=== PATIENT | female | born 1960 | race Caucasian/White ===

== ENCOUNTER → 2017-06-11 15:16 | Outpatient (CLI) | payer BC, SELFPAY ==
--- NOTE | 2017-06-11 15:21 | XR_ITS ---
XR foot LT min 3V Ordering Physician: Daniel Granados MD Patient Age: 57 years: Female HISTORY: ITS.REASON: LT FOOT PAIN Pain mainly at second toe TECHNIQUE: 3 views left foot COMPARISON :None FINDINGS No fracture nor dislocation. No periosteal reaction. Joint spaces are well-maintained. . Attention is directed towards the second toe. It appears intact. There is some mild osseous prominence with mild medial & lateral flaring from the base of the distal phalanx of the second toe and well as of fourth toe-reflecting minor morphology variation here & mild contour variation here. No foreign body or additional findings at the second toe The subarticular base proximal phalanx of the first toe is slightly sclerotic, with minor early hypertrophic changes about the lateral margin of first MTP joint which may reflect early degenerative change at first MTP joint. Slight foreshortening of the proximal phalanx great toe could reflect old injury possibly. Slightly generous over plantar calcaneal spur measuring over 11 mm. only minimal spurring at insertion Achilles tendon. --- IMPRESSION: No fracture nor subluxation. No prominent findings. Second toe appears intact Minor observations. As in text
== END ==
PROVIDERS: PCP Family Medicine; Visit Provider Family Medicine
DX: M79.672 Pain in left foot (principal)
CPT/HCPCS: 73630

== ENCOUNTER → 2017-10-30 09:56 | Outpatient (CLI) | payer BC, SELFPAY ==
--- NOTE | 2017-10-30 10:04 | CT_ITS ---
CT lung screening EXAM: CT LUNG LOW DOSE WO CONTRAST HISTORY: Currently smoking.... 1 pack per year for 36 years = 36 pack years. : CURRENT TOBACCO USE' ORDERING PHYSICIAN: Daniel Granados MD PATIENT AGE: 57 years COMPARISON: PA and lateral CXR 03/06/2007.No prior CT study TECHNIQUE: The exam was performed on a [employer] Speed [address] scanner using 2.9 mGy CTDI. A low dose helical CT CHEST was performed on a multi-detector scanner. All CT scans at the facility use one or more dose reduction, viz: automated exposure control; ma/kV adjustment per patient size (including targeted exams where dose is matched to indication; i.e. head); or iterative reconstruction technique. The LDCT was performed in a facility that meets the criteria for the screening program. Data regarding this exam was submitted to ACR which is an approved registry. The order for this exam indicates that it came as a result of a lung cancer screening counseling shard decision-making visit that included all the elements required of such a visit including smoking cessation. The radiologist interpreting this exam meets the CMS criteria for the LDCT lung cancer screening program. The exam is reported using the Lung-RADS classification scale and reported to the ACR registry. NOTE: This study was performed for the specific purposes of lung cancer screening and is not an alternative to diagnostic chest CT. RADIATION DOSE: CTDI vol(CT dose Index-volume) = 2.9mG DLP (Dose Length Product) = 95.75 mGcm FINDINGS: No suspicious lung nodule or mass evident. Only benign granuloma left base Benign nodules(Category1).: Benign calcified granuloma posterior sulcus . Measuring 6 mm size . ( Axial slice 61 ) LUNG PARENCHYMA Emphysema: Mild centrilobular emphysematous changes Small tiny bleb formation about the periphery upper lung & apices . .: Mild linear scarring and fibrotic changes seen at the posterior lung bases bilaterally Airways disease: . Borderline the airway thickening most evident central OTHER ANATOMIC REGIONS Lymph Nodes: No enlarged lymph nodes evident. Scattered small nodes are present in the mediastinum and jack. Calcified nodes left jack from old granulomatous disease Pleura: Unremarkable Cardiac: Unremarkable OTHER FINDINGS: No other pertinent findings evident IMPRESSION: 1. No suspicious lung nodule or mass 2. Benign calcified granuloma left lung base Lung RADS Category: 1 3. Mild central lobar emphysematous changes evident RECOMMENDATIONS: 12 monthd LDCT follow-up
[2017-10-30 15:02] VITALS: PULSE 80; PULSE 84
== END ==
PROVIDERS: Family Provider Family Medicine; PCP Family Medicine; Visit Provider Family Medicine
DX: Z12.2 Encounter for screening for malignant neoplasm of respiratory organs (principal); Z87.891 Personal history of nicotine dependence; R06.02 Shortness of breath
CPT/HCPCS: 94060; 94640

== ENCOUNTER → 2018-12-11 07:45 | Outpatient (CLI) | payer BC, SELFPAY ==
--- NOTE | 2018-12-11 08:00 | CT_ITS ---
CT lung screening EXAM: CT LUNG LOW DOSE WO CONTRAST HISTORY: 37 mm mobile history, asymptomatic for lung cancer ITS.REASON: CURRENT TOBACCO USE ORDERING PHYSICIAN: Daniel Granados MD PATIENT AGE: 58 years COMPARISON: 10/30/2017 TECHNIQUE: The exam was performed on a GE Light Speed [address] scanner using 2.90 mGy CTDI. A low dose helical CT CHEST was performed on a multi-detector scanner. All CT scans at the facility use one or more dose reduction, viz: automated exposure control, ma/kV adjustment per patient size (including targeted exams where dose is matched to indication, i.e. head), or iterative reconstruction technique. The LDCT was performed in a facility that meets the criteria for the screening program. Data regarding this exam was submitted to ACR which is an approved registry. The order for this exam indicates that it came as a result of a lung cancer screening counseling shard decision-making visit that included all the elements required of such a visit including smoking cessation. The radiologist interpreting this exam meets the CMS criteria for the LDCT lung cancer screening program. The exam is reported using the Lung-RADS classification scale and reported to the ACR registry. NOTE: This study was performed for the specific purposes of lung cancer screening and is not an alternative to diagnostic chest CT. RADIATION DOSE: CTDI vol(CT dose Index-volume) = 2.90mG DLP (Dose Length Product) = 93.77 mGcm FINDINGS: Mild paraseptal emphysematous change scattered fibrotic or atelectatic change noted. There is a faint groundglass nodular opacity in the superior segment of the right lower lobe at 6 mm unchanged. Calcified granuloma left lower lobe. IMPRESSION: 1. Lung RADS Category: 2, benign 2. Other findings: Mild paraseptal emphysema RECOMMENDATIONS: 12 month LDCT follow-up
== END ==
PROVIDERS: PCP Physician Assistant; Visit Provider Family Medicine
DX: Z12.2 Encounter for screening for malignant neoplasm of respiratory organs (principal); Z87.891 Personal history of nicotine dependence

== ENCOUNTER → 2019-02-28 16:16 | Outpatient (CLI) | payer OTHER, SELFPAY | PROVIDERS: Visit Provider Family Medicine | DX: R31.21 Asymptomatic microscopic hematuria (principal) | CPT/HCPCS: 87086 ==

== ENCOUNTER → 2020-01-28 07:16 | Outpatient (CLI) | payer BC, SELFPAY ==
--- NOTE | 2020-01-28 07:22 | CT_ITS ---
PROCEDURE: CT LUNG SCREENING CLINICAL INDICATION: SCREENING current smoker 37 pack year smoking history prior 12/11/18 COMPARISON: CT LUNGSCREEN CT lung screening from 12/11/2018 TECHNIQUE: The exam was performed on a GE [employer] Speed [address] scanner using 2.90 mGy CTDI. A low dose helical CT CHEST was performed on a multi-detector scanner. All CT scans at the facility use one or more dose reduction, viz: automated exposure control, ma/kV adjustment per patient size (including targeted exams where dose is matched to indication, i.e. head), or iterative reconstruction technique. The LDCT was performed in a facility that meets the criteria for the screening program. Data regarding this exam was submitted to ACR which is an approved registry. The order for this exam indicates that it came as a result of a lung cancer screening counseling shard decision-making visit that included all the elements required of such a visit including smoking cessation. The radiologist interpreting this exam meets the CMS criteria for the LDCT lung cancer screening program. The exam is reported using the Lung-RADS classification scale and reported to the ACR registry. NOTE: This study was performed for the specific purposes of lung cancer screening and is not an alternative to diagnostic chest CT. RADIATION DOSE: CTDI vol(CT dose Index-volume) = 2.90mG DLP (Dose Length Product) = 115.94 mGcm FINDINGS: COPD with paraseptal emphysematous change. There is mild prominence of the interstitium with chronic coarsening of the bronchovascular markings consistent with smoking related lung disease. No change in the small ground-glass opacity in the right upper lobe posteriorly. There are atelectatic or fibrotic changes in the lung bases. Calcified granuloma is present in the left lower lobe. OTHER FINDINGS: No other pertinent findings evident. IMPRESSION: Lung-RADS Category 2 Benign Appearance or Behavior Follow-up: Continue annual screening with LDCT in 12 months Dictated by: Geovanny Peacock MD 02/01/2020 11:04 Geovanny Peacock MD in [place] 02/01/2020 11:04
== END ==
PROVIDERS: PCP Family Medicine; Visit Provider Family Medicine
DX: Z87.891 Personal history of nicotine dependence (principal); Z12.2 Encounter for screening for malignant neoplasm of respiratory organs

== ENCOUNTER → 2021-01-23 10:35 | Outpatient (CLI) | payer BC, SELFPAY | PROVIDERS: PCP Family Medicine; Visit Provider Physician Assistant | DX: Z02.4 Encounter for examination for driving license (principal) ==

== ENCOUNTER → 2021-03-22 16:50 | Outpatient (CLI) | payer BC, SELFPAY ==
[2021-03-22 17:15] LABS: Adenovirus,PCR Not Detected (NotDetected); Bordetella Pertussis Not Detected (NotDetected); Chlamydophila Pneumoniae, PCR Not Detected (NotDetected); Coronavirus 19, PCR Not Detected (NotDetected); Coronavirus 229E Not Detected (NotDetected); Coronavirus NL63 Not Detected (NotDetected); Coronavirus OC43 Not Detected (NotDetected); Coronovirus HKU1,PCR Not Detected (NotDetected); Human Metapneumovirus Not Detected (NotDetected); Influenza A, PCR Not Detected (NotDetected); Influenza AH1, 2009 Not Detected (NotDetected); Influenza AH1, PCR Not Detected (NotDetected); Influenza AH3,PCR Not Detected (NotDetected); Influenza B, PCR Not Detected (NotDetected); Mycoplasma Pneumoniae, PCR Not Detected (NotDetected); Parainfluenza 1, PCR Not Detected (NotDetected); Parainfluenza 2, PCR Not Detected (NotDetected); Parainfluenza 3, PCR Not Detected (NotDetected); Parainfluenza 4, PCR Not Detected (NotDetected); Respiratory Syncytial Virus Not Detected (NotDetected); Rhinovirus/Enterovirus Not Detected (NotDetected)
[2021-03-22 18:09] LABS: Basophils # 0.1 K/mm3 (0-0.2); Basophils % 0.7 % (0.1-2.0); Eosinophils # 0.2 K/mm3 (0.0-0.4); Eosinophils % 2.6 % (0.1-12.0); Hematocrit 42.9 % (37.0-47.0); Hemoglobin 13.8 g/dL (12.2-16.2); Lymphocytes # 2.3 K/mm3 (0.7-4.5); Lymphocytes % 37.5 % (10-50); Mean Corpuscular HGB Conc 32.1 g/dL (31.8-35.4); Mean Corpuscular Volume 96.5 fl (81-99); Mean Platelet Volume 8.9 fl (7.4-10.4); Monocytes # 0.4 K/mm3 (0.1-1.0); Monocytes % 6.1 % (1.7-9.3); Neutrophils # 3.2 K/mm3 (1.8-7.8); Neutrophils % 53.1 % (37.0-80.0); Platelet Count 300 K/mm3 (142-424); Red Blood Count 4.45 M/mm3 (4.20-5.40); Red Cell Distribution Width 14.5 % (11.5-17.5); White Blood Count 6.1 K/mm3 (4.8-10.8)
== END ==
PROVIDERS: PCP Family Medicine; Visit Provider Family Medicine
DX: Z20.822 Contact with and (suspected) exposure to COVID-19 (principal)
CPT/HCPCS: 85025; 87581; 87632; 87798; C9803; U0003; U0005

== ENCOUNTER → 2022-01-31 08:14 | Outpatient (CLI) | payer BC, SELFPAY ==
--- NOTE | 2022-01-31 08:17 | CT_ITS ---
FINAL REPORT CLINICAL HISTORY: H/O NICOTINE DEPENDENCE. smoker, half ppd x 40 years COMPARISON: January 28, 2020 FINDINGS: Low-Dose Chest CT Axial images were obtained from the lung apex to the mid abdomen by computed tomography. Low-dose protocol was utilized. CTDI vol (mGy): 2.90 DLP (mGy-cm): 99.77 There is no axillary adenopathy. There is no hilar or mediastinal adenopathy. The heart is proper size. There is no pericardial or pleural effusion. Limited images of the upper abdomen are unremarkable. Lung window images demonstrate a calcified granuloma in the left lung base. The previously noted area of ground-glass opacity in the posterior right upper lobe is less well seen on today's exam. No new mass or nodule is identified. IMPRESSION: Resolving right upper lobe ground-glass opacity. Lung RADS category 2. Recommend 12 month follow-up low-dose chest CT. Reviewed, Interpreted and Dictated by Yong Acevedo MD Transcribed by Desire Melo Authenticated and [facility]
== END ==
PROVIDERS: PCP Family Medicine; Visit Provider Family Medicine
DX: Z87.891 Personal history of nicotine dependence (principal); Z12.2 Encounter for screening for malignant neoplasm of respiratory organs
CPT/HCPCS: 71271

== ENCOUNTER 2023-08-14 09:03 | Outpatient (CLI) | payer BC, SELFPAY ==
--- NOTE | 2023-08-14 09:11 | XR_ITS ---
FINAL REPORT CLINICAL HISTORY: POSTMENOPAUSAL COMPARISON: None FINDINGS: Using L1-4, the bone mineral density of the spine is 1.088 g/cm2, corresponding to T-score of 0.4 which is within normal limits. Using the left hip, the bone mineral density of the femoral neck is 0.880 g/cm2, corresponding to a T-score of -0.5 which is within normal limits. Using the right hip, the bone mineral density of the femoral neck is 0.744 g/cm2, corresponding to a T-score of -0.9 which is within normal limits. FRAX not reported because all T-scores at or above -1.0. NOTE: T-score: Standard deviation compared with peak bone mass of young adult mean. *Following the recommendations of the International Society of Bone densitometry, classification of hip BMD is based on the lower of two T-scores; total hip or femoral neck. IMPRESSION: Normal bone mineral density of the lumbar spine and hips. Reviewed, Interpreted and Dictated by Fili Allred III, MD Transcribed by Beulah Almeida Authenticated and . [facility]
--- NOTE | 2023-08-14 09:12 | CT_ITS ---
FINAL REPORT TECHNIQUE: Axial CT images of the chest were obtained without contrast. Low-dose protocol was utilized. This study was performed with techniques to keep radiation doses as low as reasonably achievable (ALARA). Individualized dose reduction techniques using automated exposure control or adjustment of mA and/or kV according to the patient's size were employed. CLINICAL HISTORY: HISTORY OF NICOTINE USE current smoker 1/2ppd x40+ years COMPARISON: 01/31/2022 FINDINGS: CT CHEST WITHOUT, LOW DOSE SCREENING CT Di Vol: 2.90 mGy DLP: 97.68 mGy*cm There is no axillary, mediastinal, or hilar adenopathy. The heart size is normal. There is no pleural or pericardial effusion. The lung windows show no new suspicious mass or nodule. There is mild emphysema and mild scarring. There is a calcified granuloma in the left lung base. Limited images of the upper abdomen demonstrate no acute findings. IMPRESSION: LR Category 1: 12 month follow-up low-dose chest CT is recommended. Reviewed, Interpreted and Dictated by Fili Allred III, MD Transcribed by Beulah Almeida Authenticated and [facility]
== END 2023-08-14 23:59 ==
LOC: RAD 09:04
PROVIDERS: PCP Family Medicine; Visit Provider Family Medicine
DX: Z78.0 Asymptomatic menopausal state (principal); Z87.891 Personal history of nicotine dependence
CPT/HCPCS: 71271; 77080

== ENCOUNTER 2023-10-22 10:40 | Outpatient (CLI) | payer BC, SELFPAY ==
--- NOTE | 2023-10-22 10:45 | XR_ITS ---
FINAL REPORT CLINICAL HISTORY: PAIN IN LT HAND..no trauma..pain x 3 months COMPARISON: None FINDINGS: LEFT HAND: 3 views of the left hand were obtained. There is no acute fracture or dislocation. There is mild degenerative change. Soft tissues are unremarkable. IMPRESSION: Mild degenerative change without acute bony abnormality. Reviewed, Interpreted and Dictated by Fili Allred III, MD Transcribed by Beulah Almeida Authenticated and [facility]
== END 2023-10-22 23:59 | disposition home or self-care (01) ==
LOC: RAD 10:40
PROVIDERS: PCP Family Medicine; Visit Provider Family Medicine
DX: M79.642 Pain in left hand (principal)
CPT/HCPCS: 73130

== ENCOUNTER 2024-02-19 13:15 | Outpatient (POV) | payer BC, SELFPAY | END 2024-02-19 23:59 | disposition home or self-care (01) | LOC: SC 02-20 06:36 | PROVIDERS: Visit Provider Dermatology | DX: Z00.00 Encounter for general adult medical examination without abnormal findings (principal) ==

== ENCOUNTER 2024-12-02 10:02 | Outpatient (CLI) | payer BC, SELFPAY ==
--- NOTE | 2024-12-02 10:03 | CT_ITS ---
FINAL REPORT CLINICAL HISTORY: HX OF TOBACCO current smoker 1/2ppd x44 years COMPARISON: 08/14/2023 FINDINGS: CT CHEST LOW DOSE SCREENING HISTORY: Screening exam for lung cancer. DOSE: CTDI vol: 2.90 mGy, DLP: 97.95 mGy*cm TECHNIQUE: Axial CT without IV contrast administration using low dose protocol. This study was performed with techniques to keep radiation doses as low as reasonably achievable, (ALARA). Individualized dose reduction techniques using automated exposure control or adjustment of mA and/or kV according to the patient's size were employed. No acute lung disease is present. No pulmonary lesions are seen suspicious for neoplasm. No pleural or pericardial effusion is seen. No adenopathy or mass lesion is present. IMPRESSION: No evidence of lung cancer LUNG RADS CATEGORY 1 RECOMMENDATION: 12 month LDCT follow up Reviewed, Interpreted and Dictated by Zainab Gonzáles MD Transcribed by Beulah Almeida Authenticated and [facility]
== END 2024-12-02 23:59 | disposition home or self-care (01) ==
LOC: RAD 10:02
PROVIDERS: PCP Family Medicine; Visit Provider Family Medicine
DX: Z12.2 Encounter for screening for malignant neoplasm of respiratory organs (principal); Z87.891 Personal history of nicotine dependence
CPT/HCPCS: 71271